=== PATIENT | female | born 1975 | race Caucasian/White ===

== ENCOUNTER 2018-03-12 23:18 | Observation (INO) | END 2018-03-15 17:49 | disposition home or self-care (01) ==

== ENCOUNTER 2018-09-12 18:04 | Emergency (ER) | payer MEDICAID, OTHER ==
[~2018-09-12] VITALS: Ht 144.8 cm; Wt 69.6 kg
[~2018-09-12 18:04] MED LIST: ACET325T33 PO; ATOR20TA65 PO; IBUP-1545 PO; Insulin Glargine SC; LISI-313 PO; NOVO3I SC
[2018-09-12 18:42] VITALS: Ht 144.8 cm; Wt 69.6 kg
[2018-09-12] MEDS ORDERED: SOD CHLORIDE 0.9% 1,000 ML IV STA (20:03)
[2018-09-12] MEDS ORDERED: ONDANSETRON 4 MG INJ IV STA (20:03)
[2018-09-12] MEDS ORDERED: morphine 4 MG/ML VIAL IV STA (20:03)
[2018-09-12] MEDS ORDERED: NAPR-985 PO (21:32)
[2018-09-12 22:04] VITALS: BP 123/71; PULSE 79; RESP 14
--- NOTE | 2018-09-17 06:21 | ERD ---
ER Documentation Chief Complaint Chief Complaint CABRERA, BILAT TINGLING X'S 1 DAY, HTN HPI This is a 43-year-old female presents to the emergency department complaining of a sudden onset of electric shooting-like pain over the left side of her face on the left side of her head. Contrary to the triage note the patient states she is actually not experience a headache but rather the electric shooting-like pain. There is no alleviating or exacerbating factors. It has been intermittent. Again contrary to the triage note it is not bilateral but rather unilateral on the left-hand side of left temporal region of her scalp. She states she has had no recent facial trauma. She had no fevers no shaking no chills. She did not take any analgesic medication prior to arrival. She is a past medical history of hypertension and indicates that she took her blood pressure at home and was concerned as it became very elevated. She had no chest pain. She had no shortness of breath at rest or exertion. She had no nausea or vomiting. ROS All systems reviewed and are negative except as per history of present illness. Medications Home Meds Active Scripts Naproxen* (Naprosyn*) 500 Mg Tablet, 500 MG PO BID, #20 TAB Prov:AYAAN ARCHIBALD MD 09/12/18 [Insulin Glargine] 100 UNITS/ML SOLN No Conflict Check, 21 UNITS SC DAILY@0800 for 10 Days, #10 Prov:HARLEEN KIDD MD 03/15/18 Insulin Aspart* (Novolog Insulin Pen*) 100 Unit/Ml Soln, 0 UNIT SC WITH MEALS BEDTIME for 10 Days Prov:HARLEEN KIDD MD 03/15/18 Insulin Aspart* (Novolog Insulin Pen*) 100 Unit/Ml Soln, 7 UNIT SC WITH MEALS for 10 Days, #10 Prov:HARLEEN KIDD MD 03/15/18 Acetaminophen* (Tylenol*) 325 Mg Tablet, 650 MG PO Q6H PRN for PAIN LEVEL 1-3 OR FEVER for 7 Days, TAB Prov:HARLEEN KIDD MD 03/15/18 Lisinopril* (Lisinopril*) 5 Mg Tablet, 2.5 MG PO DAILY for 10 Days, #10 TAB Prov:HARLEEN KIDD MD 03/15/18 Atorvastatin Calcium (Atorvastatin Calcium) 20 Mg Tablet, 40 MG PO QHS for 30 Days, #30 TAB Prov:HARLEEN KIDD MD 03/15/18 Reported Medications Ibuprofen* (Ibuprofen*) 800 Mg Tab, 800 MG PO NEEDED PRN for PAIN, TAB 03/12/18 Allergies Allergies: Coded Allergies: No Known Drug Allergies (Verified Allergy, Mild, 03/12/18) PMhx/Soc History of Surgery: Yes (R Hand for carpal tunnel, reyna. tubal ligation) Anesthesia Reaction: Yes (nausea/vomitting) Hx Neurological Disorder: Yes (Stroud's palsy x2, Migraines) Hx Respiratory Disorders: No Hx Cardiac Disorders: No Hx Psychiatric Problems: No Hx Miscellaneous Medical Probl: Yes (Stroud's Palsy, DM, GERD/gastritis, carpal tunnel syndrome,) Hx Alcohol Use: No Hx Substance Use: No Hx Tobacco Use: No Smoking Status: Never smoker Physical Exam Physical Exam Constitutional:Well-developed. Well-nourished. HEENT:Normocephalic. Atraumatic.Pupils were equal round reactive to light. Moist mucous membranes.No tonsillar exudates. Fundoscopy exam shows sharp optic disks and venous pulsations are present Neck: No nuchal rigidity. No lymphadenopathy. No posterior cervical spine tenderness or step-offs. Respiratory: Not using accessory muscles of respiration.Lungs were clear to auscultation bilaterally. No rhonchi. No rales. No wheezing. Cardiovascular: Regular rate regular rhythm.No murmurs. No rubs were appreciated.S1, S2 normal. Distal pulses are palpable 2+ bilaterally. GI: Abdomen was soft. Nontender. Non Distended. No pulsatile abdominal masses or bruits. No rebound. No guarding. Bowel sounds were present and normal. Muscle skeletal: Full range of motion of both the upper and lower extremities bilaterally.Normal muscle tone.No assymetrical calf tenderness or swelling. Skin: No petechia, no purpura. No lesions on the palms or the soles of the feet. No maculopapular rash. NEURO: Patient was alert, awake, orientated x3.No facial droop. Gait observed and normal with no ataxia.Speech had regular rate and rhythm. No focal neurological deficits. Reproducible tenderness over the trigeminal nerve distribution of the left side of the face. Results 24 hrs Laboratory Tests Test 09/12/18 20:15 White Blood Count 12.6 10^3/ul Red Blood Count 4.48 10^6/ul Hemoglobin 14.0 g/dl Hematocrit 42.2 % Mean Corpuscular Volume 94.2 fl Mean Corpuscular Hemoglobin 31.3 pg Mean Corpuscular Hemoglobin Concent 33.2 g/dl Red Cell Distribution Width 11.7 % Platelet Count 387 10^3/UL Mean Platelet Volume 11.2 fl Immature Granulocytes % 0.500 % Neutrophils % 66.8 % Lymphocytes % 24.6 % Monocytes % 6.8 % Eosinophils % 0.7 % Basophils % 0.6 % Nucleated Red Blood Cells % 0.0 /100WBC Immature Granulocytes # 0.060 10^3/ul Neutrophils # 8.4 10^3/ul Lymphocytes # 3.1 10^3/ul Monocytes # 0.9 10^3/ul Eosinophils # 0.1 10^3/ul Basophils # 0.1 10^3/ul Nucleated Red Blood Cells # 0.0 10^3/ul Prothrombin Time 12.5 Sec Prothrombin Time Ratio 1.0 INR International Normalized Ratio 0.92 Activated Partial Thromboplast Time 30.2 Sec Urine Color YELLOW Urine Clarity CLEAR Urine pH 5.0 Urine Specific [place] 1.024 Urine Ketones NEGATIVE mg/dL Urine Nitrite NEGATIVE mg/dL Urine Bilirubin NEGATIVE mg/dL Urine Urobilinogen 1+ mg/dL Urine Leukocyte Esterase NEGATIVE Adriel/ul Urine Microscopic RBC 0 /HPF Urine Microscopic WBC 1 /HPF Urine Bacteria FEW /HPF Urine Mucus MANY /HPF Urine Hemoglobin NEGATIVE mg/dL Urine Glucose NEGATIVE mg/dL Urine Total Protein 2+ mg/dl Sodium Level 142 mmol/L Potassium Level 4.0 mmol/L Chloride Level 107 mmol/L Carbon Dioxide Level 25 mmol/L Anion Gap 10 Blood Urea Nitrogen 12 mg/dl Creatinine 0.62 mg/dl Est Glomerular Filtrat Rate mL/min > 60 mL/min Glucose Level 140 mg/dl Calcium Level 9.9 mg/dl Total Bilirubin 0.3 mg/dl Direct Bilirubin 0.00 mg/dl Indirect Bilirubin 0.3 mg/dl Aspartate Amino Transf (AST/SGOT) 21 IU/L Alanine Aminotransferase (ALT/SGPT) < 6 IU/L Alkaline Phosphatase 91 IU/L Troponin I < 0.012 ng/ml Total Protein 8.7 g/dl Albumin 4.8 g/dl Globulin 3.90 g/dl Albumin/Globulin Ratio 1.23 Amylase Level 75 U/L Lipase 138 U/L Current Medications Medications Dose Sig/Sammie Start Time Status Last (Trade) Ordered Route PRN Stop Time Admin Dose Reason Admin Sodium 1,000 ml @ Q1H STAT 09/12/18 DC 09/12/18 Chloride 1,000 mls/hr IV 20:03 20:26 09/12/18 21:02 Morphine 4 mg ONCE STAT 09/12/18 DC 09/12/18 Sulfate IV 20:03 20:26 (morphine) 09/12/18 20:07 Ondansetron 4 mg ONCE STAT 09/12/18 DC 09/12/18 HCl (Zofran IV 20:03 20:26 Inj) 09/12/18 20:07 Procedures/MDM This is a 43-year-old female that presented to the emergency department with electric shooting-like facial pain. The patient had no focal neurological deficits on physical exam. I did feel her symptoms could be a result of trigeminal neuralgia. However indicated could not have an exact etiology without a biopsy. She did receive intravenous morphine and Zofran with complete resolution of her pain. I did obtain a blood work and there was no severe left light abnormalities. No evidence of an infectious process such as meningitis. This patient also presented to the emergency department with severely elevated blood pressure. My differential diagnosis included but was not limited to conditions that could end-organ damage such as acute coronary syndrome, acute pulmonary edema, aortic dissection, subarachnoid hemorrhage, intracerebral hemorrhage, cerebral infarction, withdrawal syndromes from beta blockers, or states of catecholamine excess such as pheochromocytoma or drug intoxication. Ancillary lab work was obtained. There was no elevation in the BUN and creatinine to suggest acute renal failure. Electrolytes were normal. Cardiac enzyme was normal and the 12 lead EKG showed no acute ischemic changes or left ventricular hypertrophy. 12 Lead EKG tracing ordered and reviewed by myself showed: Normal sinus rhythm of 78 bpm and no arrhythmia. MO interval normal. QRS duration normal. No ST segment elevation No ST segment depression. No changes consistent with acute ischemia. Given that the patient had an absence of cerebral, ocular, cardiac or renal damage the hypertensive urgency was treated with oral agents in the emergency room with improvement of the patient's blood pressure. The patient likely appeared to be complaint with primary care physician and will follow up with their PCP in the next 24-48 hours. They were instructed to return to the emergency department at anytime if there is any worsening of their condition such as development of chest pain or a headache. They were instructed to resume previous medication regimen or initiate a suitable medication regimen under care of the PCP to enable proper monitoring for drug reactions. The patient was also informed on the adverse side effects and adverse drug interactions of the medications prescribed to them by myself. The patient gave informed consent to the prescription of the new medication. Departure Diagnosis: Primary Impression: Trigeminal neuralgia of left side of face Additional Impression: Hypertensive urgency Condition: Fair Patient Instructions: Paraesthesias, Trigeminal Neuralgia Referrals: RYLIE SILVA MD (PCP) AYAAN ARCHIBALD MD Sep 17, 2018 06:21
== END 2018-09-12 22:04 | disposition home or self-care (01) ==
LOC: E/R 18:04
DX: G50.0 Trigeminal neuralgia (principal); I16.0 Hypertensive urgency; I10 Essential (primary) hypertension; E11.9 Type 2 diabetes mellitus without complications; Z79.4 Long term (current) use of insulin
CPT/HCPCS: 80053; 81001; 82150; 83690; 84484; 85025; 85610; 85730; 93005; 96361; 96374; 96375; J2270; J2405; J7030; Z7502; Z7610